=== PATIENT | female | born 1980 | race African-American/Black ===

== ENCOUNTER 2019-01-23 19:48 | Emergency (ER) | payer BC ==
[~2019-01-23] VITALS: Ht 162.6 cm; Wt 90.7 kg
[2019-01-23 20:45] LABS: PLATELET COUNT 285 K/uL (152-353)
[2019-01-23 20:56] LABS: POTASSIUM 4.1 mmol/L (3.6-5.2)
[2019-01-23 22:25] VITALS: BP 111/58; TEMP 98.1
== END 2019-01-23 22:30 | disposition home or self-care (01) ==
LOC: EDSEX 19:48 → ED 19:48
PROVIDERS: Emergency Medicine Emergency Medical Services
DX: R10.11 Right upper quadrant pain (principal)
CPT/HCPCS: 36415; 80053; 81000; 81025; 82150; 83690; 85027; 93005; 96360; 96374; 96375; 99284; J2175; J2405